=== PATIENT | female | born 1960 | race Caucasian/White ===

== ENCOUNTER 2021-07-29 05:55 | Emergency (ER) | payer BC ==
[2021-07-29] MEDS ORDERED: HYDROcodone/Acetaminophen 5/325 mg Tablet ONE (06:33)
[2021-07-29] MEDS ORDERED: predniSONE 20 MG TAB ONE (06:51)
== END 2021-07-29 07:03 | disposition home or self-care (01) ==
LOC: NAV ERS 05:55
DX: M51.16 Intervertebral disc disorders with radiculopathy, lumbar region (principal)
CPT/HCPCS: 99283; J7512